=== PATIENT | female | born 1965 | race Caucasian/White ===

== ENCOUNTER 2016-10-26 21:59 | Emergency (ER) | payer BC ==
--- NOTE | 2016-10-26 22:23 | Emergency Department Record ---
History of Present Illness - General Chief Complaint: General Stated Complaint: FOUND A WORM IN HER STOOL AND HAS IT WITH HER Time Seen by Provider: 10/26/16 22:13 Source: Patient Mode of Arrival: Ambulatory Limitations: No limitations - History of Present Illness Initial Comments: 50 yo female presents with a concern after seeing a worm in her stool. No fevers or chills. No NVD. No blood. No pain. No history of similar problems in the past. 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 Complaint: Other (Worm noted in her stool) -: Minutes(s) Location: Other (rectal) Consistency: Other Improves With: Nothing Worsens With: Nothing Associated Symptoms: Denies other symptoms - Related Data Home Medications Medication Instructions Recorded Confirmed Last Taken Sertraline HCl [Zoloft] 50 mg PO DAILY 04/01/15 10/26/16 10/26/16 Previous Rx's Medication Instructions Recorded Mebendazole [Emverm] 100 mg PO TID #6 tab.chew 10/26/16 Allergies Allergy/AdvReac Type Severity Reaction Status Date / Time No Known Drug Allergies Allergy Verified 04/01/15 12:03 Review of Systems Constitutional: Denies: Chills, Fever, Weakness Eyes: Denies: Eye discharge ENT: Denies: Congestion, Throat pain Respiratory: Denies: Cough Cardiovascular: Denies: Chest pain, Palpitations, Syncope Endocrine: Denies: Fatigue Gastrointestinal: Reports: As per HPI, Other. Denies: Abdominal pain, Constipation, Diarrhea, Hematemesis, Nausea, Vomiting Genitourinary: Denies: Dysuria, Urgency Musculoskeletal: Denies: Arthralgia, Back pain, Myalgia, Neck pain Skin: Denies: Bruising, Change in color Neurological: Denies: Headache Psychiatric: Denies: Depression Hematological/Lymphatic: Denies: Blood Clots, Easy bleeding, Easy bruising Physical Exam - General General Appearance: Alert Limitations: No limitations - Head Head exam: Atraumatic - Eye Eye exam: Normal appearance. negative: Conjunctival injection, Scleral icterus - ENT ENT exam: Normal exam Ear exam: Normal external inspection - Neck Neck exam: Normal inspection - Cardiovascular Cardiovascular Exam: Regular rate, Normal rhythm, Normal heart sounds - GI/Abdominal GI/Abdominal exam: Soft. negative: Distended - Rectal Rectal exam: Deferred - exam: Deferred - Neurological Neurological exam: Alert, Oriented X3 - Psychiatric Psychiatric exam: Normal affect, Normal mood. negative: Agitated, Anxious - Skin Skin exam: Dry, Intact, Normal color, Warm Course Vital Signs 10/26/16 22:06 Temperature 97.7 F Pulse Rate [ 59 L Pulse Ox Probe] Respiratory 16 Rate Blood Pressure 125/94 [Left Arm] Pulse Ox 98 - Reevaluation(s) Reevaluation #1: The worm was provided by the patient It will be sent for ID She is asymptomatic She has no pain, no bloody stools, no weight loss She will be provided a prescription for Mebendazole and a GI referral. 10/26/16 22:23 10/27/16 01:38 Disposition Disposition: Discharge Clinical Impression: Intestinal worms Disposition: Home, Self-Care Condition: (1) Good Additional Instructions: Call your doctor for follow up You are being referred to the GI clinic at [facility] as well Return if you have fever, pain bloody stools or any new concerns. Prescriptions: Mebendazole [Emverm] 100 mg PO TID #6 tab.chew Referrals: [facility] Specialty Clinics [Provider Group] TANNER LAWLER [DOCTOR OF OSTEOPATH] - Forms: Patient Portal Access Time of Disposition: 22:28
== END 2016-10-26 22:47 | disposition home or self-care (01) ==
LOC: ER 21:59
DX: B38.9 Coccidioidomycosis, unspecified (principal)
CPT/HCPCS: 99283